=== PATIENT | female | born 2000 | race Two or more races ===

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

== ENCOUNTER 2021-11-08 22:51 | Emergency (ER) | payer BC ==
[~2021-11-08] VITALS: Ht 157.5 cm; Wt 77.0 kg
[2021-11-09 00:30] LABS: BASOPHILS % 0.3 % (0.0-2.0); EOSINOPHILS % 0.4 % (0.0-5.0); HEMATOCRIT. 36.5 % (36.0-48.0); HEMOGLOBIN. 11.9 g/dL (12.0-16.0); LYMPHOCYTES % 24.7 % (20.0-50.0); MEAN CORPUSCULAR HEMOGLOBIN 27.7 pg (28.0-32.0); MEAN PLATELET VOLUME 6.3 fl (7.4-10.4); MONOCYTES % 9.2 % (2.0-8.0); NEUTROPHILS % 65.4 % (40.0-76.0); PLATELET 430 x1000/uL (130-400); RED CELL DISTRIBUTION WIDTH 13.6 % (11.6-14.6)
[2021-11-09 00:35] LABS: CHLORIDE 110 mEq/L (98-107)
[2021-11-09 00:37] LABS: HCG SCREEN NEGATIVE
[2021-11-09 00:44] LABS: ETHANOL BLOOD < 10 mg/dL
[2021-11-09 05:26] LABS: CLARITY URINE TURBID (CLEAR); COLOR URINE DARK YELLOW (YELLOW); KETONES URINE TRACE (NEGATIVE); LEUKOCYTE ESTERASE URINE NEGATIVE (NEGATIVE); NITRITE URINE NEGATIVE (NEGATIVE); OCCULT BLOOD URINE NEGATIVE (NEGATIVE); PH URINE 5.5 (4.5-8.0); PROTEIN URINE TRACE (NEGATIVE); SPECIFIC GRAVITY URINE 1.032 (1.005-1.030)
[2021-11-09 06:24] LABS: *BARBITURATES SCREEN URINE NEGATIVE (NEGATIVE); *BENZODIAZEPINES SCREEN URINE NEGATIVE (NEGATIVE); *COCAINE SCREEN URINE NEGATIVE (NEGATIVE); CANNABINOID URINE SCREEN NEGATIVE (NEGATIVE); METHADONE URINE SCREEN NEGATIVE (NEGATIVE); OPIATES URINE SCREEN NEGATIVE (NEGATIVE); PHENCYCLIDINE URINE SCREEN NEGATIVE (NEGATIVE)
[2021-11-09 06:25] LABS: *AMPHETAMINES SCREEN URINE PRESUMTIVE POSITIVE (NEGATIVE)
[2021-11-09] MEDS ORDERED: LORAZEPAM 1MG TABLET PO ONE (08:00)
[2021-11-09] MEDS ORDERED: OLANZAPINE 10MG TABLET PO SCH (09:00)
[2021-11-09 14:06] VITALS: BP 121/63
== END 2021-11-09 14:06 | disposition home or self-care (01) ==
LOC: ER 22:51
DX: R45.851 Suicidal ideations (principal); F20.9 Schizophrenia, unspecified; F19.10 Other psychoactive substance abuse, uncomplicated; Z87.891 Personal history of nicotine dependence; F12.10 Cannabis abuse, uncomplicated
CPT/HCPCS: 36415; 80053; 80305; 80307; 80320; 80329; 81003; 84703; 85025; 99285; G0480

== ENCOUNTER 2021-11-12 11:04 | Emergency (ER) | payer BC, OTHER ==
[~2021-11-12] VITALS: Ht 154.9 cm; Wt 73.0 kg
[2021-11-12] MEDS ORDERED: LORAZEPAM 0.5MG TABLET PO ONE (11:15)
[2021-11-12] MEDS ORDERED: ACETAMINOPHEN 325MG TABLET PO ONE (11:15)
[2021-11-12] MEDS ORDERED: ACET-2708 MT (11:57)
[2021-11-12 12:22] VITALS: BP 126/75
== END 2021-11-12 12:23 ==
LOC: ER 11:13
DX: S43.402A Unspecified sprain of left shoulder joint, initial encounter (principal); F20.9 Schizophrenia, unspecified; M19.90 Unspecified osteoarthritis, unspecified site; F15.10 Other stimulant abuse, uncomplicated; F31.9 Bipolar disorder, unspecified; F41.9 Anxiety disorder, unspecified; M32.9 Systemic lupus erythematosus, unspecified; F17.210 Nicotine dependence, cigarettes, uncomplicated; Y35.893A Legal intervention involving other specified means, suspect injured, initial encounter; Y93.89 Activity, other specified; Y92.488 Other paved roadways as the place of occurrence of the external cause
CPT/HCPCS: 73030; 81025; 99283